=== PATIENT | female | born 1965 | race African-American/Black ===

== ENCOUNTER 2024-07-04 16:09 | Emergency (ER) | payer OTHER, SELFPAY ==
[2024-07-04 16:28] VITALS: BP 142/62
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
[2024-07-04] MEDS: MOTRIN 600 MG PO (17:30)
== END 2024-07-04 17:34 | disposition home or self-care (01) ==
LOC: EMR 16:09
PROVIDERS: EMERGENCY PHYSICIAN Emergency Medicine; FAMILY PHYSICIAN Internal Medicine
DX: S46.911A Strain of unspecified muscle, fascia and tendon at shoulder and upper arm level, right arm, initial encounter (principal); S39.012A Strain of muscle, fascia and tendon of lower back, initial encounter; V49.40XA Driver injured in collision with unspecified motor vehicles in traffic accident, initial encounter
CPT/HCPCS: 99284; 72110; 73030